=== PATIENT | female | born 1980 | race Hispanic/Latino ===

== ENCOUNTER 2017-10-02 06:46 | Emergency (ER) | payer OTHER ==
[~2017-10-02] VITALS: Ht 160 cm; Wt 74.8 kg
--- NOTE | 2017-10-02 07:07 | ED GENERAL ADULT ---
History of Present Illness General Chief Complaint: General Adult Stated Complaint: "HAVENT BEEN SLEEPING TINGLING BILAT ARMS" Source: patient Exam Limitations: no limitations Vital Signs & Intake/Output Vital Signs & Intake/Output Vital Signs Date Time Temp Pulse Resp B/P B/P Pulse O2 O2 Flow FiO2 Mean Ox Delivery Rate 10/02 0855 98.2 64 18 124/87 98 10/02 0741 Room Air Room Air 10/02 0703 98.1 76 16 135/89 98 Room Air Allergies Coded Allergies: No Known Allergies (10/02/17) Reconcile Medications Cyclobenzaprine HCl 10 MG TABLET 1 TAB PO QPM NECK/ARM PAIN Meloxicam (Mobic) 15 MG TABLET 1 TAB PO DAILY NECK/ARM PAIN TAKE WITH FOOD Prednisone 20 MG TABLET 1 TAB PO DAILY NECK INFLAMMATION TAKE WITH FOOD Triage Note: 37YO FEMALE TO TRIAGE W/CO L SHOULDER PAIN SINCE WEDNESDAY AND PAIN NOW TRAVELING DOWN L ARM AND TRAVELING TO R SHOULDER. Triage Nurses Notes Reviewed? yes : No Patient currently breastfeeds: No HPI: 37 year old female with no past medical history presenting to the ED with left arm pain and numbness that has been preventing her from sleeping for 5 days. The patient first noticed a pain in her arm at bedtime 5 days ago, that was stabbing & shooting in nature. This pain came on at night, was associated with a pins & needles numbness and tingling from the base of her neck down to her left hand and arm, and was rated 10/10 in severity. The night prior to presentation she began feeling the pain on the right side as well. She had been to her PMD the day prior to presentation, and reports that the tramadol and methocarbamol she had been giving was not helping. 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 (Hero Romero MD) Past History Travel History Traveled to [place] past 21 day No Medical History Any Pertinent Medical History? see below for history Musculoskeletal: FX L ANKLE Surgical History Surgical History: non-contributory Psychosocial History What is your primary language Polish Tobacco Use: Quit >30 days ago Family History Comment: Arthritis in mother Hx Contributory? Yes (Hero Romero MD) Review of Systems Review of Systems Constitutional: Denies: chills, fever. Respiratory: Denies: cough, short of breath. Cardiovascular: Reports: peripheral edema. Denies: chest pain. GI: Denies: abdominal pain, nausea, vomiting. Musculoskeletal: Reports: neck pain. Denies: back pain. (Hero Romero MD) Physical Exam Physical Exam General Appearance: well developed/nourished, no apparent distress, alert, awake Neck: supple, full range of motion (Pain with flexion) Respiratory: normal breath sounds, chest non-tender, no respiratory distress Cardiovascular: regular rate/rhythm Gastrointestinal: normal bowel sounds, soft, non-tender Extremities: normal inspection, normal capillary refill, normal range of motion Neurologic/Psych: awake, alert, oriented x 3, normal gait Core Measures ACS in differential dx? No CVA/TIA Diagnosis: No Sepsis Present: No Sepsis Focused Exam Completed? No (Hero Romero MD) Progress Differential Diagnoses I considered the following diagnoses in my evaluation of the patient: [cervical radiculopathy] Plan of Care: Orders Procedure Date/time Status Durable Medical Equipment 10/02 0933 Active URINE 10/02 0748 Complete EKG 10/02 0729 Active Laboratory Tests 10/02/17 0751: Urine Test NEGATIVE Soft cervical collar applied for patient comfort. Diagnostic Imaging: Viewed by Me: Radiology Read. Discussed w/RAD: Radiology Read. Radiology Impression: no fracture, Degenerative changes in C5 and C6 Initial ED EKG: Sinus arrhythmia with left axis (Hero Romero MD) Departure Departure Disposition: HOME OR SELF CARE Condition: Stable Clinical Impression Primary Impression: Cervical radiculopathy Referrals: Jessica Walls MD (PCP/Family) Departure Forms: Customer Survey General Discharge Information Prescriptions: Current Visit Scripts Meloxicam (Mobic) 1 TAB PO DAILY #7 TAB TAKE WITH FOOD Cyclobenzaprine HCl 1 TAB PO QPM #7 TAB Prednisone 1 TAB PO DAILY #5 TAB TAKE WITH FOOD (Hero Romero MD) Resident Co-Sign Statement Statement: ED Attending supervision documentation- [x] I saw and evaluated the patient. I have also reviewed all the pertinent lab results and diagnostic results. I agree with the findings and the plan of care as documented in the Resident's documentation. [] I have reviewed the ED Record and agree with the Resident's documentation. [] Additions or exceptions (if any) to the Resident's note and plan are summarized below: [] I saw and personally evaluated the patient. She has left-sided neck pain and pain radiating down the left arm. 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 She has no chest pain. Findings are consistent with cervical radiculopathy. She relates a recent history of lifting a friend and straining her neck. She denies any chest pain or shortness of breath. EKG reveals sinus arrhythmia. (Jb LEONARD,Albert Stout) Critical Care Note Critical Care Note Critical Care Time: non-applicable (Nick FRAUSTO,Hero) Critical Care Time: non-applicable (Nick FRAUSTO,Hero)
[2017-10-02] MEDS ORDERED: PREDNISONE20 M1 PO ×2 (08:10→09:33)
[2017-10-02 08:55] VITALS: BP 124/87
--- NOTE | 2017-10-02 09:25 | RADIOLOGY REPORT ---
EXAMINATION: XR CERVICAL SPINE CLINICAL INFORMATION: Left thumb pain and numbness starting from the neck. COMPARISON: None TECHNIQUE: 5 views. FINDINGS: There is mild straightening of cervical lordosis. The vertebral heights and alignment are normal. There is loss of C5-C6 disc height. Rest of the disc heights are normal. The neural foramina are patent bilaterally on oblique projections. The prevertebral and paravertebral soft tissues are normal. IMPRESSION: Reversal of cervical lordosis. No visible acute fracture, dislocation or soft tissue abnormality. Degenerative disc changes C5-C6 disc level.
[2017-10-02] MEDS ORDERED: MOBIC15 M1 PO (09:33)
[2017-10-02] MEDS ORDERED: CYCLOBENZAPRINE10 M1 PO (09:33)
== END 2017-10-02 09:45 ==
LOC: ERH 06:46
DX: M54.12 Radiculopathy, cervical region (principal)
CPT/HCPCS: 72050; 81025; 93005; 93010; 96372; J1885

== ENCOUNTER 2017-10-07 18:11 | Emergency (ER) | payer OTHER ==
[~2017-10-07] VITALS: Ht 160 cm; Wt 74.8 kg
[~2017-10-07 18:11] MED LIST: CYCLOBENZAPRINE10 M1 PO; MOBIC15 M1 PO; PREDNISONE20 M1 PO
[2017-10-07 18:25] VITALS: BP 136/77
--- NOTE | 2017-10-07 18:48 | RADIOLOGY REPORT ---
EXAMINATION: XR CHEST CLINICAL INFORMATION: Chest pain COMPARISON: None TECHNIQUE: 2 views of the chest were obtained. FINDINGS: No significant abnormality is noted involving the heart, lungs, mediastinum, bony thorax or soft tissues. IMPRESSION: Unremarkable examination.
[2017-10-07 19:27] LABS: ABSOLUTE BASOPHIL COUNT 0 /CUMM (0.0-0.2); ABSOLUTE EOSINOPHIL COUNT 0.1 /CUMM (0.0-0.7); ABSOLUTE LYMPH COUNT 2.5 /CUMM (1.2-3.4); ABSOLUTE MONOCYTE COUNT 0.5 /CUMM (0.10-0.60); BASOPHIL % 0.5 % (0.0-2.0); EOSINOPHIL % 1.3 % (0-5); GRANULOCYTE % 65.4 % (42.2-75.2); HEMATOCRIT 36.3 % (37-47); MEAN CORPUSCULAR HGB 26.7 PG (27.0-31.0); MEAN CORPUSCULAR HGB CONC 33.1 G/DL (33.0-37.0); MEAN CORPUSCULAR VOLUME 80.5 FL (81.0-99.0); MEAN PLATELET VOLUME 8.5 FL (7.4-10.4); PLATELET COUNT 278 /CUMM (130-400); RBC DISTRIBUTION WIDTH 14.1 % (11.5-14.5); RED BLOOD CELL CT 4.51 /CUMM (4.20-5.40); WHITE BLOOD CELL COUNT 9.1 /CUMM (4.8-10.8)
--- NOTE | 2017-10-07 20:35 | ED NECK/BACK PAIN COMPLAINT ---
History of Present Illness General Chief Complaint: General Adult Stated Complaint: NECK AND L SHOULDER PAIN, "CHEST SWOLLEN" Source: patient Exam Limitations: no limitations Vital Signs & Intake/Output Vital Signs & Intake/Output Vital Signs Date Time Temp Pulse Resp B/P B/P Pulse O2 O2 Flow FiO2 Mean Ox Delivery Rate 10/07 1950 97 Room Air 10/075 99.1 96 18 136/77 96 Room Air Allergies Coded Allergies: No Known Allergies (10/02/17) Reconcile Medications Cyclobenzaprine HCl 10 MG TABLET 1 TAB PO QPM NECK/ARM PAIN Diazepam (Valium) 5 MG TABLET 1-2 TAB PO Q8P PRN SPASMS Meloxicam (Mobic) 15 MG TABLET 1 TAB PO DAILY NECK/ARM PAIN TAKE WITH FOOD Oxycodone HCl/Acetaminophen (Percocet 5-325 MG Tablet) 5 MG-325 MG TABLET 1-2 TAB PO Q6P PRN PAIN Prednisone 20 MG TABLET 1 TAB PO DAILY NECK INFLAMMATION TAKE WITH FOOD Triage Note: PT STATES THAT SHE WAS EVALUATED 12 DAYS AGO FOR L SIDE NECK PAIN FROM LIFTING INJURY , THE PAIN SHOOTS DOWN HER L ARM 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 Triage Nurses Notes Reviewed? yes Onset: Abrupt Duration: hour(s): (5 PM) Timing: recent history Loss of Consciousness: no loss of consciousness : No Patient currently breastfeeds: No HPI: 37-year-old female comes into the emergency room for left shoulder/arm pain. Patient was seen here a few days ago for the same symptoms. She had an x-ray done of her neck. She was put on prednisone and Flexeril and meloxicam. She's had pain in her left neck shoulder area for 2 weeks continuous that has not gone away. She reports now for the last 2 days she's had pain in the left side of her shoulder going down into her arm and now she feels in her left upper chest. She denies any shortness of breath. She reports that it hurts in her chest when she pushes on it. Her shoulder hurts with any type of movement. She denies any fever chills cough. Denies any other associated symptoms. She comes in for further evaluation. (Mathieu Marie) Past History Travel History Traveled to [place] past 21 day No Medical History Any Pertinent Medical History? see below for history Neurological: NONE EENT: NONE Cardiovascular: NONE Respiratory: NONE Gastrointestinal: NONE Hepatic: NONE Renal: NONE Musculoskeletal: FX L ANKLE Psychiatric: NONE Endocrine: NONE Blood Disorders: NONE Cancer(s): NONE COLOR DIPPER/Reproductive: NONE Surgical History Surgical History: non-contributory Psychosocial History What is your primary language Tongan Tobacco Use: Never used ETOH Use: denies use Illicit Drug Use: denies illicit drug use Family History Hx Contributory? No (Mathieu Marie) Review of Systems Review of Systems Constitutional: Reports: no symptoms. Eyes: Reports: no symptoms. Ears, Nose, Throat, Mouth: Reports: no symptoms. Respiratory: Reports: no symptoms. Cardiovascular: Reports: no symptoms. Gastrointestinal/Abdominal: Reports: no symptoms. Musculoskeletal: Reports: see HPI. Skin: Reports: no symptoms. Neurological/Psychological: Reports: no symptoms. All Other Systems: Reviewed and Negative (Mathieu Marie) Physical Exam Physical Exam General Appearance: well developed/nourished, mild distress Head: atraumatic Eyes: Bilateral: normal appearance. Ears, Nose, Throat, Mouth: hearing grossly normal, moist mucous membrane Neck: normal inspection, full range of motion Respiratory: normal breath sounds, no respiratory distress Cardiovascular: regular rate/rhythm Gastrointestinal: soft, non-tender Back: normal inspection Extremities: normal range of motion, FULL RANGE OF MOTION OF LEFT SHOULDER, HOWEVER PAIN WITH RANGE OF MOTION, TENDERNESS WITH PALPATION TO LEFT POSTERIOR SHOULDER, RADIAL PULSES 2+, TENDERNESS WITH PALPATION OVER LEFT UPPER CHEST WALL , Neurologic/Psych: awake, alert, oriented x 3, normal mood/affect Skin: intact, normal color, warm/dry Core Measures CVA/TIA Diagnosis: No (Mathieu Marie) Progress Differential Diagnosis: HERNIATED DISC, MUSCLE SPASM, mi, COSTOCHONDRITIS, Plan of Care: Orders Procedure Date/time Status TROPONIN LEVEL 10/07 1825 Complete HUMAN BETA HCG SCREEN 10/07 1825 Complete D-DIMER 10/07 1825 Complete COMPREHENSIVE METABOLIC PANEL 10/07 1825 Complete CBC WITHOUT DIFFERENTIAL 10/07 1825 Complete EKG 10/07 1825 Active Laboratory Tests 10/07/17 1915: Anion Gap 8, Estimated GFR > 60, BUN/Creatinine Ratio 21.4, Glucose 82, Calcium 9.1, Total Bilirubin 0.2, AST 19, ALT 25, Alkaline Phosphatase 88, Troponin I < 0.01, Total Protein 7.3, Albumin 4.3, Globulin 3.0, Albumin/Globulin Ratio 1.4, Total Beta HCG NEGATIVE, D-Dimer High Sensitivty < 200, CBC w Diff NO MAN DIFF REQ, RBC 4.51, MCV 80.5 L, MCH 26.7 L, MCHC 33.1, RDW 14.1, MPV 8.5, Gran % 65.4, Lymphocytes % 27.8, Monocytes % 5.0, Eosinophils % 1.3, Basophils % 0.5, Absolute Granulocytes 6.0, Absolute Lymphocytes 2.5, Absolute Monocytes 0.5, Absolute Eosinophils 0.1, Absolute Basophils 0 Diagnostic Imaging: Viewed by Me: Radiology Read. Discussed w/RAD: Radiology Read. Radiology Impression: PATIENT: DANIA DON PRESENT AGE: 37 PATIENT ACCOUNT NO: [id number] : 79 LOCATION: [facility] ORDERING PHYSICIAN: Mathieu CASEY SERVICE DATE: 10/07/17 EXAM TYPE: RAD - XRY-CHEST XRAY, TWO VIEWS EXAMINATION: XR CHEST CLINICAL INFORMATION: Chest pain COMPARISON: None TECHNIQUE: 2 views of the chest were obtained. FINDINGS: No significant abnormality is noted involving the heart, lungs, mediastinum, bony thorax or soft tissues. IMPRESSION: Unremarkable examination. DICTATED BY: Kelvin Platt MD DATE/TIME DICTATED:10/07/171843 INTERNAL AFFAIRS COMMANDER:SALVADOR DATE/ TIME TRANSCRIBED:10/07/171843 CONFIDENTIAL, DO NOT COPY WITHOUT APPROPRIATE AUTHORIZATION. <Electronically signed in Other Vendor System> SIGNED BY: Kelvin Platt MD 10/07/171847 Initial ED EKG: normal sinus rhythm, rate (80) (Mathieu Marie) Departure Departure Disposition: HOME OR SELF CARE Condition: Stable Clinical Impression Primary Impression: Cervical radiculopathy Referrals: Jessica Walls MD (PCP/Family) Additional Instructions: Take percocet and valium as prescribed. Follow-up with orthopedic doctor. Return if any concerns worsening symptoms. Take medications as prescribed. Please go over all results of today's visit with your primary care doctor. Contact your primary care doctor to let them know you were here in the emergency room. There may be nonspecific findings which may not be related to your visit today here in the emergency room but may require further evaluation and chronic monitoring by your primary care doctor. If you had a laceration today the chance of foreign body always remains. You should follow-up with your primary care doctor for recheck in 3-5 days for a wound check. If you had an x-ray done there is a chance that a fracture could have been missed on initial read and you should follow-up with your primary care doctor for repeat x-rays if symptoms persist. If your blood pressure was elevated here in the emergency room please have rechecked by [facility] primary care doctor within the next 48. If you were prescribed a narcotic here in the emergency room or any type of controlled substances you're not allowed to drive while taking this medication or operate any type of heavy machinery. Narcotics can make you feel lightheaded dizziness nausea and can cause constipation. You may need to cherry picker operator a stool softener. Thank you for choosing [facility] emergency room. Please return to the emergency room immediately if you have any other concerns worsening of symptoms. Departure Forms: Customer Survey General Discharge Information Prescriptions: Current Visit Scripts Oxycodone HCl/Acetaminophen (Percocet 5-325 MG Tablet) 1-2 TAB PO Q6P PRN PAIN #20 TAB Diazepam (Valium) 1-2 TAB PO Q8P PRN SPASMS #20 TAB Comments 10/07/2017 11:40:36 PM Patient clinically looks well. In no apparent distress. Nontoxic-appearing. Her pain is consistent with musculoskeletal pain. Her pain has been continuous for 2 weeks and the chest pain in the upper wall has been continuous for more than a day. First troponin negative. Heart score 0. Do not feel second EKG and troponin is warranted at this time. She was seen here a few days ago for the same symptoms. Oxycodone improved pain. Follow-up with PCP. (Mathieu Marie) PA/HEALTH SCIENCES DEPARTMENT CHAIR Co-Sign Statement Statement: ED Attending supervision documentation- I saw and evaluated the patient. I have also reviewed all the pertinent lab results and diagnostic results. I agree with the findings and the plan of care as documented in the PA's/HEALTH SCIENCES DEPARTMENT CHAIR's documentation. x I have reviewed the ED Record and agree with the PA's/HEALTH SCIENCES DEPARTMENT CHAIR's documentation. [] Additions or exceptions (if any) to the PAs/HEALTH SCIENCES DEPARTMENT CHAIR's note and plan are summarized below: [] (Vidal FRAUSTO,Kenneth)
[2017-10-07] MEDS ORDERED: PERCOCET 5-3251 EACH PO (21:10)
[2017-10-07] MEDS ORDERED: VALIUM5 M2 PO (21:10)
== END 2017-10-07 21:22 ==
LOC: ERH 18:11
PROVIDERS: Physician Assistant Medical
DX: M54.12 Radiculopathy, cervical region (principal)
CPT/HCPCS: 71046; 93005; 93010